=== PATIENT | male | born 1980 | race Two or more races ===

== ENCOUNTER 2016-10-23 12:50 | Inpatient (IN) | payer OTHER ==
[2016-10-23 18:58] VITALS: BMI 20.9
--- NOTE | 2016-10-23 20:41 | HP ---
CIWA Score - CIWA Score Nausea/Vomitin-Mild Nausea/No Vomiting Muscle Tremors: 3 Anxiety: 3 Agitation: 3 Paroxysmal Sweats: 3 Orientation: 1-Uncertain about Date Tacttile Disturbances: 1-Very Mild Itch/Numbness (BILATERAL FEET) Auditory Disturbances: 1-Very Mild Visual Disturbances: 2-Mild Sensitivity Headache: 1-Very Mild CIWA-Ar Total Score: 19 Admission ROS S - HPI Chief Complaint: WITHDRAWAL SYMPTOMS Allergies/Adverse Reactions: Allergies Allergy/AdvReac Type Severity Reaction Status Date / Time acetaminophen [From Tylenol] AdvReac Verified 10/23/16 20:39 aspirin AdvReac Verified 10/23/16 20:39 History of Present Illness: 36 Y.O. MAN WITH AN EXTENSIVE HISTORY OF ALCOHOL AND DRUG ABUSE IS SEEKING DETOX. HE HAS NEVER COMPLETED DETOX TREATMENT. Exam Limitations: No Limitations - Ebola screening Have you traveled outside of the country in the last 21 days: No Have you had contact with anyone from an Ebola affected area: No Have you been sick,other than usual withdrawal symptoms: No Do you have a fever: No - Review of Systems Constitutional: Diaphoresis, Loss of Appetite, Changes in sleep, Unintentional Wgt. Loss EENT: reports: Blurred Vision, Tearing, Difficulty Swallowing Respiratory: reports: Shortness of Breath (H/O ASTHMA), Hemoptysis Cardiac: reports: Chest Pain GI: reports: Poor Appetite : reports: No Symptoms Reported Musculoskeletal: reports: Back Pain, Joint Pain, Muscle Weakness Integumentary: reports: No Symptoms Reported Neuro: reports: Headache, Tingling, Tremors Endocrine: reports: No Symptoms Reported Hematology: reports: Other (SICKLE CELL ANEMIA) Psychiatric: reports: Depressed Other Systems: Reviewed and Negative Patient History - Patient Medical History Hx Anemia: Yes (SICKLE CELL ANEMIA ) Hx Asthma: Yes (NOT ON MEDS ) Hx Chronic Obstructive Pulmonary Disease (COPD): No Hx Cancer: No Hx Cardiac Disorders: No Hx Congestive Heart Failure: No Hx Hypertension: No Hx Hypercholesterolemia: No Hx Pacemaker: No HX Cerebrovascular Accident: No Hx Seizures: No Hx Dementia: No Hx Diabetes: No (H/O HYPOGLYCEMIA ) Hx Gastrointestinal Disorders: No Hx Liver Disease: No Hx Genitourinary Disorders: No Hx Sexually Transmitted Disorders: No Hx Renal Disease (ESRD): No Hx Thyroid Disease: No Hx Human Immunodeficiency Virus (HIV): No Hx Hepatitis C: No Hx Depression: Yes Hx Suicide Attempt: Yes (2010 IN [facility]-ATTEMPTED TO HANG HIMSELF ) Hx Bipolar Disorder: No Hx Schizophrenia: No - Patient Surgical History Past Surgical History: Yes Hx Neurologic Surgery: No Hx Cataract Extraction: No Hx Cardiac Surgery: No Hx Lung Surgery: No Hx Breast Surgery: No Hx Breast Biopsy: No Hx Abdominal Surgery: No Hx Appendectomy: No Hx Cholecystectomy: No Hx Genitourinary Surgery: No Hx Orthopedic Surgery: Yes (REPAIR OF FX LEFT ARM) Anesthesia Reaction: No - PPD History Previous Implant?: Yes Documented Results: Negative w/o proof PPD to be Administered?: Yes - Reproductive History Patient is a Female of Child Bearing Age (11 -55 yrs old): No - Smoking Cessation Smoking history: Current some day smoker Have you smoked in the past 12 months: Yes Aproximately how many cigarettes per day: 5 Hx Chewing Tobacco Use: No Initiated information on smoking cessation: Yes 'Breaking Loose' booklet given: 10/23/16 - Substance & Tx. History Hx Alcohol Use: Yes Hx Substance Use: Yes Substance Use Type: Alcohol, Cocaine, Marijuana Hx Substance Use Treatment: Yes (DETOX) - Substances Abused Alcohol Route: Oral Frequency: Daily Amount used: LIQUOR-2-5 PINTS; 6 PACK OF BEER Age of first use: 9 Date of Last Use: 10/22/16 Cocaine Route: Inhalation Frequency: 3-6 times per week Age of first use: 10 Date of Last Use: 10/23/16 Marijuana/Hashish Route: Smoking Frequency: Daily Age of first use: 10 Date of Last Use: 10/23/16 Family Disease History - Family Disease History Family Disease History: Heart Disease: Grandparent, Father (ETOH DEPENDENCE ), Mother, [place]: Grandparent, Respiratory: Father, Sister, Other: Father Admission Physical Exam BHS - Vital Signs Vital Signs: Vital Signs - 24 hr 10/23/16 18:53 Temperature 98 F Pulse Rate 91 H Respiratory 20 Rate Blood Pressure 111/67 - Physical General Appearance: Yes: Disheveled, Tremorous, Irritable, Anxious HEENTM: Yes: Hearing grossly Normal, Normal ENT Inspection, Normocephalic, Normal Voice Respiratory: Yes: Chest Non-Tender, Lungs Clear, Normal Breath Sounds, No Respiratory Distress, No Accessory Muscle Use Neck: Yes: No masses,lesions,Nodules, Supple, Trachea in good position Breast: Yes: Breast Exam Deferred Cardiology: Yes: Regular Rhythm, Regular Rate Abdominal: Yes: Normal Bowel Sounds, Non Tender, Flat, Soft Genitourinary: Yes: Within Normal Limits Back: Yes: Normal Inspection Musculoskeletal: Yes: Back pain, Muscle Pain Extremities: Yes: Normal Capillary Refill, Normal Inspection, Normal Range of Motion Neurological: Yes: Alert Integumentary: Yes: Normal Color, Dry, Warm Lymphatic: Yes: Within Normal Limits - Diagnostic (1) Alcohol dependence with uncomplicated withdrawal Current Visit: Yes Status: Chronic (2) Cocaine dependence Current Visit: Yes Status: Chronic (3) Cannabis dependence, uncomplicated Current Visit: Yes Status: Chronic (4) Asthma Current Visit: Yes Status: Chronic (5) History of hypoglycemia Current Visit: Yes Status: Chronic Cleared for Admission [facility] - Detox or Rehab [facility] Level of Care: Medically Managed Detox Regimen/Protocol: Librium [facility] Breath Alcohol Content Breath Alcohol Content: 0 Urine Drug Screen - Results Drug Screen Negative: No Urine Drug Screen Results: THC-Marijuana, VIKTORIYA-Cocaine
[2016-10-23] MEDS ORDERED: P-EPHED 60MG/TRIPROLIDI 2.5MG TABLET PO PRN (20:59)
[2016-10-23] MEDS ORDERED: MAG HYDROX/AL HYDROX/SIMETH 30 ML UNIT-DOSE CUP PO PRN (20:59)
[2016-10-23] MEDS ORDERED: MAGNESIUM HYDROX 2400MG/30ML ORAL SUSPENSION 30 ML CUP PO PRN (20:59)
[2016-10-23] MEDS ORDERED: chlordiazePOXIDE HCL 25 MG CAPSULE PO ONE (20:59)
[2016-10-23] MEDS ORDERED: chlordiazePOXIDE HCL 25 MG CAPSULE PO PRN (20:59)
[2016-10-23] MEDS ORDERED: MENTHOL/PHENOL 1 EACH UD MM PRN (20:59)
[2016-10-23] MEDS ORDERED: hydrOXYzine PAMOATE 50 MG CAPSULE (FP) PO PRN (20:59)
[2016-10-23] MEDS ORDERED: guaiFENesin/D-METHORPHAN HB 10 ML UNIT-DOSE CUPS PO PRN (20:59)
[2016-10-23] MEDS ORDERED: MAGNESIUM CITRATE 300 ML BOTTLE PO PRN (20:59)
[2016-10-23] MEDS ORDERED: LOPERAMIDE HCL 2 MG CAPSULE PO PRN (20:59)
[2016-10-23] MEDS ORDERED: ALBUTEROL SO4 2.5/IPRATROPIUM 0.5 INH SOL 3 ML VIAL.NEB. NEB PRN (21:10)
[2016-10-23] MEDS: chlordiazePOXIDE HCL 25 MG CAPSULE PO SCH (22:41)
[2016-10-23] MEDS: diphenhydrAMINE HCL 50 MG CAPSULE PO PRN (22:41)
[2016-10-23] MEDS: THIAMINE HCL 100 MG TABLET (FP) PO SCH (22:41)
[2016-10-23 23:10] LABS: URINE APPEARANCE CLEAR; URINE BILIRUBIN NEGATIVE (NEGATIVE); URINE BLOOD NEGATIVE (NEGATIVE); URINE COLOR STRAW; URINE GLUCOSE (UA) NEGATIVE (NEGATIVE); URINE KETONE NEGATIVE (NEGATIVE); URINE LEUK ESTERASE NEGATIVE (NEGATIVE); URINE NITRITE NEGATIVE (NEGATIVE); URINE PROTEIN NEGATIVE (NEGATIVE); URINE UROBILINOGEN NEGATIVE E.U./dl (0.2-1.0)
[2016-10-24] MEDS: chlordiazePOXIDE HCL 25 MG CAPSULE PO SCH ×4 (05:50→22:04)
[2016-10-24] MEDS: PRENATAL VITAMINS W/ FOLIC ACID TABLET (FP) PO SCH (10:18)
--- NOTE | 2016-10-24 10:39 | CONSULT ---
[facility] Psychiatric Consult - Data Date of interview: 10/24/16 Admission source: [facility] Identifying data: Patient is approached at bedside for psychiatric evaluation.He refuses to cooperate." I have God and the Bible as guides.I don't need psychiatrists.Have a nice day."Psychiatric interview cannot be conducted due to patient's resistance.
[2016-10-24 11:19] LABS: ALBUMIN 4.2 g/dl (3.4-5.0); ANION GAP 9 (8-16); BILIRUBIN,TOTAL 0.8 mg/dL (0.2-1.0); CALCIUM 9.6 mg/dL (8.5-10.1); CO2 29 mmol/L (21-32); CREATININE 1.2 mg/dL (0.7-1.3); GLUCOSE,RANDOM 96 mg/dL (74-106); SGOT/AST 156 U/L (15-37); SGPT/ALT 58 U/L (12-78); TOT PROT 8.1 g/dl (6.4-8.2)
[2016-10-24 11:20] LABS: ALK PHOS 72 U/L (45-117)
[2016-10-24 11:28] LABS: MCH 30.4 pg (25.7-33.7); MCHC 33.6 g/dl (32.0-35.9); MEAN CELL VOLUME 90.4 fl (80-96); MEAN PLT VOLUME 8.2 fl (7.5-11.1); PLATELET COUNT 228 K/MM3 (134-434); WHITE BLOOD COUNT 11.1 K/mm3 (4.0-10.0)
--- NOTE | 2016-10-24 13:34 | PN ---
S CIWA - CIWA Score Nausea/Vomitin-Mild Nausea/No Vomiting Muscle Tremors: 4-Moderate,w/Arms Extend Anxiety: 3 Agitation: 3 Paroxysmal Sweats: 3 Orientation: 0-Oriented Tacttile Disturbances: 0-None Auditory Disturbances: 0-None Visual Disturbances: 0-None Headache: 0-None Present CIWA-Ar Total Score: 14 BHS Progress Note (SOAP) Subjective: Anxiety,tremors,sweating,interrupted sleep,restless Objective: 10/24/16 13:32 Vital Signs - 8 hr 10/24/16 10/24/16 06:38 10:43 Temperature 96.8 F L 98.4 F Pulse Rate 69 77 Respiratory 16 18 Rate Blood Pressure 108/66 110/70 Laboratory Tests 10/23/16 10/24/16 10/24/16 21:05 05:50 06:15 WBC 11.1 H RBC 4.78 Hgb 14.5 Hct 43.2 MCV 90.4 MCHC 33.6 RDW 14.0 Plt Count 228 MPV 8.2 Sodium Potassium Chloride Carbon Dioxide Anion Gap BUN Creatinine Creat Clearance w eGFR POC Glucometer 92 Random Glucose Calcium Total Bilirubin AST ALT Alkaline Phosphatase Total Protein Albumin Urine Color Straw Urine Appearance Clear Urine pH 6.0 Ur Specific [place] 1.005 Urine Protein Negative Urine Glucose (UA) Negative Urine Ketones Negative Urine Blood Negative Urine Nitrite Negative Urine Bilirubin Negative Urine Urobilinogen Negative Ur Leukocyte Esterase Negative 10/24/16 06:15 WBC RBC Hgb Hct MCV MCHC RDW Plt Count MPV Sodium 138 Potassium 4.0 Chloride 100 Carbon Dioxide 29 Anion Gap 9 BUN 18 Creatinine 1.2 Creat Clearance w eGFR > 60 POC Glucometer Random Glucose 96 Calcium 9.6 Total Bilirubin 0.8 AST 156 H ALT 58 Alkaline Phosphatase 72 Total Protein 8.1 Albumin 4.2 Urine Color Urine Appearance Urine pH Ur Specific [place] Urine Protein Urine Glucose (UA) Urine Ketones Urine Blood Urine Nitrite Urine Bilirubin Urine Urobilinogen Ur Leukocyte Esterase labs noted Assessment: 10/24/16 13:32 Withdrawal sx. Plan: Continue detox
[2016-10-24 14:10] LABS: HIV 1 & 2 AB NEGATIVE; HIV 1 AGp24 NEGATIVE
[2016-10-24] MEDS: THIAMINE HCL 100 MG TABLET (FP) PO SCH (22:04)
[2016-10-25] MEDS: chlordiazePOXIDE HCL 25 MG CAPSULE PO SCH ×3 (06:02→17:54)
[2016-10-25] MEDS: PRENATAL VITAMINS W/ FOLIC ACID TABLET (FP) PO SCH (10:12)
--- NOTE | 2016-10-25 15:22 | PN ---
S CIWA - CIWA Score Nausea/Vomitin Muscle Tremors: 4-Moderate,w/Arms Extend Anxiety: 4-Mod. Anxious/Guarded Agitation: 3 Paroxysmal Sweats: No Perspiration Orientation: 0-Oriented Tacttile Disturbances: 1-Very Mild Itch/Numbness Auditory Disturbances: 0-None Visual Disturbances: 0-None Headache: 2-Mild CIWA-Ar Total Score: 17 BHS Progress Note (SOAP) Subjective: Sweating, tremor, interrupted sleep, anxious Objective: 10/25/16 15:20 Last Vital Signs Temp Pulse Resp BP Pulse Ox 96 F L 72 20 118/70 10/25/16 14:00 10/25/16 14:00 10/25/16 14:00 10/25/16 14:00 Laboratory Tests 10/23/16 10/24/16 10/24/16 21:05 05:50 06:00 WBC RBC Hgb Hct MCV MCHC RDW Plt Count MPV Sodium Potassium Chloride Carbon Dioxide Anion Gap BUN Creatinine Creat Clearance w eGFR POC Glucometer 92 Random Glucose Calcium Total Bilirubin AST ALT Alkaline Phosphatase Total Protein Albumin Urine Color Straw Urine Appearance Clear Urine pH 6.0 Ur Specific [place] 1.005 Urine Protein Negative Urine Glucose (UA) Negative Urine Ketones Negative Urine Blood Negative Urine Nitrite Negative Urine Bilirubin Negative Urine Urobilinogen Negative Ur Leukocyte Esterase Negative RPR Titer HIV 1&2 Antibody Screen Negative HIV P24 Antigen Negative 10/24/16 10/24/16 10/24/16 06:15 06:15 06:15 WBC 11.1 H RBC 4.78 Hgb 14.5 Hct 43.2 MCV 90.4 MCHC 33.6 RDW 14.0 Plt Count 228 MPV 8.2 Sodium 138 Potassium 4.0 Chloride 100 Carbon Dioxide 29 Anion Gap 9 BUN 18 Creatinine 1.2 Creat Clearance w eGFR > 60 POC Glucometer Random Glucose 96 Calcium 9.6 Total Bilirubin 0.8 AST 156 H ALT 58 Alkaline Phosphatase 72 Total Protein 8.1 Albumin 4.2 Urine Color Urine Appearance Urine pH Ur Specific [place] Urine Protein Urine Glucose (UA) Urine Ketones Urine Blood Urine Nitrite Urine Bilirubin Urine Urobilinogen Ur Leukocyte Esterase RPR Titer Nonreactive HIV 1&2 Antibody Screen HIV P24 Antigen Labs noted Assessment: 10/25/16 15:21 Withdrawal symptoms Plan: Continue detox
[2016-10-25] MEDS: chlordiazePOXIDE 5 MG CAPSULE PO SCH (22:08)
[2016-10-25] MEDS: THIAMINE HCL 100 MG TABLET (FP) PO SCH (22:08)
[2016-10-25] MEDS: diphenhydrAMINE HCL 50 MG CAPSULE PO PRN (22:08)
--- NOTE | 2016-10-25 22:47 | EKG ---
Test Reason : Blood Pressure : / mmHG Vent. Rate : 063 BPM Atrial Rate : 063 BPM P-R Int : 136 ms QRS Dur : 088 ms QT Int : 420 ms P-R-T Axes : 081 061 061 degrees QTc Int : 429 ms NORMAL SINUS RHYTHM POSSIBLE LEFT ATRIAL ENLARGEMENT LEFT VENTRICULAR HYPERTROPHY ABNORMAL ECG NO PREVIOUS ECGS AVAILABLE Confirmed by OSIRIS JOHNSON MD ([id number]) on 10/25/2016 10:47:19 PM Referred By: Brielle Daigle Confirmed By:OSIRIS JOHNSON MD
[2016-10-26] MEDS: chlordiazePOXIDE 5 MG CAPSULE PO SCH ×3 (06:13→17:25)
[2016-10-26] MEDS: PRENATAL VITAMINS W/ FOLIC ACID TABLET (FP) PO SCH (10:04)
[2016-10-26 10:44] LABS: BASOPHIL 0.9 % (0-2.0); EOSINOPHIL 3.4 % (0-4.5); MCH 30.5 pg (25.7-33.7); MCHC 33.7 g/dl (32.0-35.9); MEAN CELL VOLUME 90.5 fl (80-96); MEAN PLT VOLUME 7.6 fl (7.5-11.1); NEUTROPHILS 52.4 % (42.8-82.8); PLATELET COUNT 213 K/MM3 (134-434); RDW 13.7 % (11.9-15.9); WHITE BLOOD COUNT 4.9 K/mm3 (4.0-10.0)
--- NOTE | 2016-10-26 13:35 | PN ---
BHS Progress Note (SOAP) Subjective: Sweating,interrupted sleep,restless Objective: 10/26/16 13:34 Vital Signs - 8 hr 10/26/16 10/26/16 10/26/16 06:46 09:31 13:25 Temperature 96.8 F L 95.5 F L 96.8 F L Pulse Rate 79 77 86 Respiratory 18 18 18 Rate Blood Pressure 124/76 114/75 117/74 Laboratory Last Values WBC 4.9 K/mm3 (4.0-10.0) D 10/26/16 07:00 RBC 4.41 M/mm3 (4.00-5.60) 10/26/16 07:00 Hgb 13.5 GM/dL (11.7-16.9) 10/26/16 07:00 Hct 39.9 % (35.4-49) 10/26/16 07:00 MCV 90.5 fl (80-96) 10/26/16 07:00 MCHC 33.7 g/dl (32.0-35.9) 10/26/16 07:00 RDW 13.7 % (11.9-15.9) 10/26/16 07:00 Plt Count 213 K/MM3 (134-434) 10/26/16 07:00 MPV 7.6 fl (7.5-11.1) 10/26/16 07:00 Neutrophils % 52.4 % (42.8-82.8) 10/26/16 07:00 Lymphocytes % 33.5 % (8-40) 10/26/16 07:00 Monocytes % 9.8 % (3.8-10.2) 10/26/16 07:00 Eosinophils % 3.4 % (0-4.5) 10/26/16 07:00 Basophils % 0.9 % (0-2.0) 10/26/16 07:00 Sodium 138 mmol/L (136-145) 10/24/16 06:15 Potassium 4.0 mmol/L (3.5-5.1) 10/24/16 06:15 Chloride 100 mmol/L (98-107) 10/24/16 06:15 Carbon Dioxide 29 mmol/L (21-32) 10/24/16 06:15 Anion Gap 9 (8-16) 10/24/16 06:15 BUN 18 mg/dL (7-18) 10/24/16 06:15 Creatinine 1.2 mg/dL (0.7-1.3) 10/24/16 06:15 Creat Clearance w eGFR > 60 (>60) 10/24/16 06:15 POC Glucometer 92 UNITS (()) 10/24/16 05:50 Random Glucose 96 mg/dL (74-106) 10/24/16 06:15 Calcium 9.6 mg/dL (8.5-10.1) 10/24/16 06:15 Total Bilirubin 0.8 mg/dL (0.2-1.0) 10/24/16 06:15 AST 156 U/L (15-37) H 10/24/16 06:15 ALT 58 U/L (12-78) 10/24/16 06:15 Alkaline Phosphatase 72 U/L (45-117) 10/24/16 06:15 Total Protein 8.1 g/dl (6.4-8.2) 10/24/16 06:15 Albumin 4.2 g/dl (3.4-5.0) 10/24/16 06:15 Urine Color Straw 10/23/16 21:05 Urine Appearance Clear 10/23/16 21:05 Urine pH 6.0 (5.0-8.0) 10/23/16 21:05 Ur Specific [place] 1.005 (1.001-1.035) 10/23/16 21:05 Urine Protein Negative (NEGATIVE) 10/23/16 21:05 Urine Glucose (UA) Negative (NEGATIVE) 10/23/16 21:05 Urine Ketones Negative (NEGATIVE) 10/23/16 21:05 Urine Blood Negative (NEGATIVE) 10/23/16 21:05 Urine Nitrite Negative (NEGATIVE) 10/23/16 21:05 Urine Bilirubin Negative (NEGATIVE) 10/23/16 21:05 Urine Urobilinogen Negative E.U./dl (0.2-1.0) 10/23/16 21:05 Ur Leukocyte Esterase Negative (NEGATIVE) 10/23/16 21:05 RPR Titer Nonreactive (NONREACTIVE) 10/24/16 06:15 HIV 1&2 Antibody Screen Negative 10/24/16 06:00 HIV P24 Antigen Negative 10/24/16 06:00 labs noted Assessment: 10/26/16 13:35 Withdrawal sx. Plan: Continue detox
[2016-10-26] MEDS: diphenhydrAMINE HCL 50 MG CAPSULE PO PRN (22:13)
[2016-10-26] MEDS: THIAMINE HCL 100 MG TABLET (FP) PO SCH (22:13)
[2016-10-26] MEDS: chlordiazePOXIDE HCL 10 MG CAPSULE PO SCH (22:13)
[2016-10-27] MEDS: chlordiazePOXIDE HCL 10 MG CAPSULE PO SCH ×2 (06:59→10:02)
--- NOTE | 2016-10-27 09:58 | DS ---
[facility] Detox Discharge Summary Admission Date: 10/23/16 Discharge Date: 10/27/16 - History Present History: Alcohol Dependence, Cannabis Dependence, Cocaine Dependence Additional Comments: DETOX COMPLETED. NAD. Pertinent Past History: ASTHMA SICKLE CELL ANEMIA HX - Physical Exam Results Vital Signs: Vital Signs Temperature 97.4 F L 10/26/16 22:20 Pulse Rate 70 10/26/16 22:20 Respiratory Rate 18 10/27/16 03:29 Blood Pressure 116/72 10/26/16 22:20 O2 Sat by Pulse Oximetry (%) Pertinent Admission Physical Exam Findings: WITHDRAWAL SX Laboratory Last Values WBC 4.9 K/mm3 (4.0-10.0) D 10/26/16 07:00 RBC 4.41 M/mm3 (4.00-5.60) 10/26/16 07:00 Hgb 13.5 GM/dL (11.7-16.9) 10/26/16 07:00 Hct 39.9 % (35.4-49) 10/26/16 07:00 MCV 90.5 fl (80-96) 10/26/16 07:00 MCHC 33.7 g/dl (32.0-35.9) 10/26/16 07:00 RDW 13.7 % (11.9-15.9) 10/26/16 07:00 Plt Count 213 K/MM3 (134-434) 10/26/16 07:00 MPV 7.6 fl (7.5-11.1) 10/26/16 07:00 Neutrophils % 52.4 % (42.8-82.8) 10/26/16 07:00 Lymphocytes % 33.5 % (8-40) 10/26/16 07:00 Monocytes % 9.8 % (3.8-10.2) 10/26/16 07:00 Eosinophils % 3.4 % (0-4.5) 10/26/16 07:00 Basophils % 0.9 % (0-2.0) 10/26/16 07:00 Sodium 138 mmol/L (136-145) 10/24/16 06:15 Potassium 4.0 mmol/L (3.5-5.1) 10/24/16 06:15 Chloride 100 mmol/L (98-107) 10/24/16 06:15 Carbon Dioxide 29 mmol/L (21-32) 10/24/16 06:15 Anion Gap 9 (8-16) 10/24/16 06:15 BUN 18 mg/dL (7-18) 10/24/16 06:15 Creatinine 1.2 mg/dL (0.7-1.3) 10/24/16 06:15 Creat Clearance w eGFR > 60 (>60) 10/24/16 06:15 POC Glucometer 92 UNITS (()) 10/24/16 05:50 Random Glucose 96 mg/dL (74-106) 10/24/16 06:15 Calcium 9.6 mg/dL (8.5-10.1) 10/24/16 06:15 Total Bilirubin 0.8 mg/dL (0.2-1.0) 10/24/16 06:15 AST 156 U/L (15-37) H 10/24/16 06:15 ALT 58 U/L (12-78) 10/24/16 06:15 Alkaline Phosphatase 72 U/L (45-117) 10/24/16 06:15 Total Protein 8.1 g/dl (6.4-8.2) 10/24/16 06:15 Albumin 4.2 g/dl (3.4-5.0) 10/24/16 06:15 Urine Color Straw 10/23/16 21:05 Urine Appearance Clear 10/23/16 21:05 Urine pH 6.0 (5.0-8.0) 10/23/16 21:05 Ur Specific [place] 1.005 (1.001-1.035) 10/23/16 21:05 Urine Protein Negative (NEGATIVE) 10/23/16 21:05 Urine Glucose (UA) Negative (NEGATIVE) 10/23/16 21:05 Urine Ketones Negative (NEGATIVE) 10/23/16 21:05 Urine Blood Negative (NEGATIVE) 10/23/16 21:05 Urine Nitrite Negative (NEGATIVE) 10/23/16 21:05 Urine Bilirubin Negative (NEGATIVE) 10/23/16 21:05 Urine Urobilinogen Negative E.U./dl (0.2-1.0) 10/23/16 21:05 Ur Leukocyte Esterase Negative (NEGATIVE) 10/23/16 21:05 RPR Titer Nonreactive (NONREACTIVE) 10/24/16 06:15 Hepatitis C Antibody 0.2 s/co ratio (0.0-0.9) 10/24/16 09:30 HIV 1&2 Antibody Screen Negative 10/24/16 06:00 HIV P24 Antigen Negative 10/24/16 06:00 - Treatment Hospital Course: Detox Protocol Followed, Detoxed Safely, Responded well, Discharged Condition Good - Medication Discharge Medications: Ambulatory Orders NK [No Known Home Medication] 10/23/16 - Diagnosis (1) Alcohol dependence with uncomplicated withdrawal Current Visit: Yes Status: Acute (2) Asthma Current Visit: Yes Status: Chronic Qualifiers: Asthma severity: mild intermittent Asthma complication type: uncomplicated Qualified Code(s): J45.20 - Mild intermittent asthma, uncomplicated (3) Cannabis dependence, uncomplicated Current Visit: Yes Status: Acute (4) Cocaine dependence Current Visit: Yes Status: Chronic Qualifiers: Substance use status: uncomplicated Qualified Code(s): F14.20 - Cocaine dependence, uncomplicated (5) History of hypoglycemia Current Visit: Yes Status: Suspected - AMA Did Patient Leave Against Medical Advice: No
[2016-10-27 10:00] VITALS: BP 114/68; PULSE 96; TEMP 96.4
[2016-10-27] MEDS: PRENATAL VITAMINS W/ FOLIC ACID TABLET (FP) PO SCH (10:01)
== END 2016-10-27 13:30 | disposition home or self-care (01) | DRG 774 ==
LOC: YASAS 12:50 → Y3N 20:11
PROVIDERS: ADMIT Internal Medicine; ATTEND Internal Medicine
PROC: HZ2ZZZZ Detoxification Services for Substance Abuse Treatment (ICD-10-PCS; principal; 2016-10-27)
DX: F10.230 Alcohol dependence with withdrawal, uncomplicated (principal); F14.20 Cocaine dependence, uncomplicated; F12.20 Cannabis dependence, uncomplicated; J45.20 Mild intermittent asthma, uncomplicated; D57.00 Hb-SS disease with crisis, unspecified; E16.2 Hypoglycemia, unspecified
CPT/HCPCS: 36415; 80053; 81003; 85025; 85027; 86593; 87389; 93005; 93010